=== PATIENT | male | born 1975 | race Caucasian/White ===

== ENCOUNTER 2017-04-30 05:21 | Emergency (ER) | payer MEDICAID ==
[~2017-04-30] VITALS: Ht 185.4 cm; Wt 90.7 kg
[2017-04-30 05:28] VITALS: Ht 185.4 cm; Wt 90.7 kg
[2017-04-30 06:32] LABS: UA SPECIFIC GRAVITY >=1.030 (1.005-1.035); microscopic required? YES; urine erythrocyte 2+ (NEGATIVE)
[2017-04-30 06:53] LABS: BASOPHIL % 0.8 % (0-2); PLATELET COUNT 246 x10^3mcL (130-400); RED CELL DISTRIBUTION WIDTH 12.6 % (11.5-14.5)
[2017-04-30 07:11] LABS: CALCIUM 8.4 mg/dL (8.5-10.1); CARBON DIOXIDE 28.6 mmol/L (21-32); CHLORIDE SERUM 105 mmol/L (98-107); CREATININE SERUM 0.8 mg/dL (0.7-1.3); GFR1 > 60 mL/min; GLUCOSE SERUM 85 mg/dL (74-106); POTASSIUM SERUM 4.1 mmol/L (3.5-5.1); SODIUM SERUM 142 mmol/L (136-145)
[2017-04-30 07:17] LABS: ALBUMIN 3.3 g/dL (3.4-5.0); ALKALINE PHOSPHATASE 44 U/L (46-116); ALT/SGPT 17 U/L (16-63); AST/SGOT 15 U/L (15-37); BILIRUBIN TOTAL 0.3 mg/dL (0.20-1.00); TOTAL PROTEIN, SERUM 6.8 g/dL (6.4-8.2)
[2017-04-30 08:19] VITALS: BP 126/83
== END 2017-04-30 08:28 | disposition home or self-care (01) ==
LOC: ED 05:21
PROVIDERS: Emergency Medicine; Specialist
DX: N49.2 Inflammatory disorders of scrotum (principal); N39.0 Urinary tract infection, site not specified
CPT/HCPCS: 36415; 83880; 87491; 87591; J0696; J1885; J2270; Q0092; Q0162

== ENCOUNTER 2017-05-10 04:21 | Emergency (ER) | payer MEDICAID ==
[~2017-05-10] VITALS: Ht 182.9 cm; Wt 92.1 kg
[2017-05-10 04:24] VITALS: Ht 182.9 cm; Wt 92.1 kg
[2017-05-10 04:51] VITALS: BP 126/89
== END 2017-05-10 04:51 | disposition home or self-care (01) ==
LOC: ED 04:21
DX: F31.9 Bipolar disorder, unspecified (principal); Z86.59 Personal history of other mental and behavioral disorders

== ENCOUNTER 2017-06-23 12:41 | Emergency (ER) | payer MEDICAID ==
[~2017-06-23] VITALS: Ht 185.4 cm; Wt 88.2 kg
[2017-06-23 12:50] VITALS: BP 125/62; Ht 185.4 cm; Wt 88.2 kg
== END 2017-06-23 13:23 | disposition home or self-care (01) ==
LOC: ED 12:41
DX: R44.0 Auditory hallucinations (principal); Z76.0 Encounter for issue of repeat prescription; F41.9 Anxiety disorder, unspecified; Z86.59 Personal history of other mental and behavioral disorders

== ENCOUNTER 2017-07-01 18:00 | Emergency (ER) | payer MEDICAID ==
[~2017-07-01] VITALS: Ht 185.4 cm; Wt 91.2 kg
[2017-07-01 18:03] VITALS: Ht 185.4 cm; Wt 91.2 kg
[2017-07-01 19:23] VITALS: BP 134/88
== END 2017-07-01 19:23 | disposition home or self-care (01) ==
LOC: ED 18:00
DX: F41.8 Other specified anxiety disorders (principal); Z76.0 Encounter for issue of repeat prescription; Z59.0 Homelessness

== ENCOUNTER 2017-07-07 11:20 | Emergency (ER) | payer MEDICAID ==
[~2017-07-07] VITALS: Ht 185.4 cm; Wt 91.6 kg
[2017-07-07 11:26] VITALS: Ht 185.4 cm; Wt 91.6 kg
[2017-07-07 13:30] VITALS: BP 132/79
== END 2017-07-07 13:30 | disposition home or self-care (01) ==
LOC: ED 11:20
DX: I88.9 Nonspecific lymphadenitis, unspecified (principal)

== ENCOUNTER 2017-08-15 20:12 | Emergency (ER) | payer MEDICAID ==
[~2017-08-15] VITALS: Ht 185.4 cm; Wt 91.6 kg
[2017-08-15 20:31] VITALS: Ht 185.4 cm; Wt 91.6 kg
[2017-08-15 21:15] LABS: BASOPHIL % 0.7 % (0-2); PLATELET COUNT 272 x10^3mcL (130-400); RED CELL DISTRIBUTION WIDTH 14.3 % (11.5-14.5)
[2017-08-15 21:21] LABS: CALCIUM 8.3 mg/dL (8.5-10.1); CARBON DIOXIDE 27.3 mmol/L (21-32); CHLORIDE SERUM 107 mmol/L (98-107); CREATININE SERUM 1.3 mg/dL (0.7-1.3); GFR1 > 60 mL/min; GLUCOSE SERUM 115 mg/dL (74-106); POTASSIUM SERUM 3.9 mmol/L (3.5-5.1); SODIUM SERUM 143 mmol/L (136-145)
[2017-08-15 21:28] LABS: ALBUMIN 3.5 g/dL (3.4-5.0); ALKALINE PHOSPHATASE 57 U/L (46-116); ALT/SGPT 25 U/L (16-63); AST/SGOT 20 U/L (15-37); BILIRUBIN TOTAL 0.2 mg/dL (0.20-1.00); TOTAL PROTEIN, SERUM 6.4 g/dL (6.4-8.2)
[2017-08-15 21:52] LABS: UA SPECIFIC GRAVITY 1.025 (1.005-1.035); microscopic required? YES; urine erythrocyte TRACE (NEGATIVE)
[2017-08-15 22:00] LABS: AMPHETAMINE QUAL UR NONE DETECTED
[2017-08-16 04:01] VITALS: BP 123/58
== END 2017-08-16 04:01 | disposition home or self-care (01) ==
LOC: ED 20:12
PROVIDERS: Emergency Medicine
DX: F32.9 Major depressive disorder, single episode, unspecified (principal); F41.9 Anxiety disorder, unspecified; F17.200 Nicotine dependence, unspecified, uncomplicated
CPT/HCPCS: 36415; G0480

== ENCOUNTER 2017-09-17 20:04 | Emergency (ER) | payer MEDICAID ==
[~2017-09-17] VITALS: Ht 185.4 cm; Wt 88.5 kg
[2017-09-17 20:13] VITALS: Ht 185.4 cm; Wt 88.5 kg
[2017-09-17 21:13] VITALS: BP 126/71
== END 2017-09-17 21:13 | disposition left against medical advice (07) ==
LOC: ED 20:04
DX: Z53.21 Procedure and treatment not carried out due to patient leaving prior to being seen by health care provider (principal)

== ENCOUNTER 2017-10-05 19:41 | Emergency (ER) | payer MEDICAID ==
[~2017-10-05] VITALS: Ht 185.4 cm; Wt 87.7 kg
[2017-10-05 19:50] VITALS: Ht 185.4 cm; Wt 87.7 kg
[2017-10-05 21:49] LABS: BASOPHIL % 0.4 % (0-2); PLATELET COUNT 246 x10^3mcL (130-400); RED CELL DISTRIBUTION WIDTH 14.4 % (11.5-14.5)
[2017-10-05 21:50] LABS: microscopic required? NO
[2017-10-05 21:55] LABS: CARBON DIOXIDE 29.1 mmol/L (21-32); CHLORIDE SERUM 105 mmol/L (98-107); CREATININE SERUM 0.9 mg/dL (0.7-1.3); GFR1 > 60 mL/min; GLUCOSE SERUM 118 mg/dL (74-106); POTASSIUM SERUM 3.8 mmol/L (3.5-5.1); SODIUM SERUM 140 mmol/L (136-145)
[2017-10-05 22:00] LABS: ALBUMIN 3.4 g/dL (3.4-5.0); ALKALINE PHOSPHATASE 59 U/L (46-116); ALT/SGPT 22 U/L (16-63); AST/SGOT 20 U/L (15-37); BILIRUBIN TOTAL 0.3 mg/dL (0.20-1.00); TOTAL PROTEIN, SERUM 6.3 g/dL (6.4-8.2)
[2017-10-05 22:12] LABS: urine erythrocyte NEGATIVE (NEGATIVE)
[2017-10-05 22:20] LABS: AMPHETAMINE QUAL UR NONE DETECTED (See below)
[2017-10-06 01:35] VITALS: BP 134/75
== END 2017-10-06 01:35 | disposition home or self-care (01) ==
LOC: ED 19:41
PROVIDERS: Emergency Medicine
DX: F31.9 Bipolar disorder, unspecified (principal); F17.210 Nicotine dependence, cigarettes, uncomplicated; Z88.0 Allergy status to penicillin
CPT/HCPCS: 36415; G0480

== ENCOUNTER 2017-12-10 18:28 | Emergency (ER) | payer OTHER ==
[~2017-12-10] VITALS: Ht 185.4 cm; Wt 90.7 kg
[2017-12-10 18:34] VITALS: Ht 185.4 cm; Wt 90.7 kg
[2017-12-10 18:55] VITALS: BP 119/85
== END 2017-12-10 18:55 | disposition other institution (70) ==
LOC: ED 18:28
DX: R00.0 Tachycardia, unspecified (principal); F23 Brief psychotic disorder; F32.9 Major depressive disorder, single episode, unspecified; F41.9 Anxiety disorder, unspecified

== ENCOUNTER 2018-05-06 09:35 | Emergency (ER) | payer OTHER ==
[~2018-05-06] VITALS: Ht 185.4 cm; Wt 90.3 kg
[2018-05-06 09:53] VITALS: BP 120/57; Ht 185.4 cm; Wt 90.3 kg
== END 2018-05-06 10:28 | disposition home or self-care (01) ==
LOC: ED 09:35
DX: Z76.0 Encounter for issue of repeat prescription (principal); F41.9 Anxiety disorder, unspecified; F32.9 Major depressive disorder, single episode, unspecified; Z88.0 Allergy status to penicillin

== ENCOUNTER 2018-08-09 11:15 | Emergency (ER) | payer OTHER ==
[~2018-08-09] VITALS: Ht 185.4 cm; Wt 94.8 kg
[2018-08-09 11:19] VITALS: BP 132/81
== END 2018-08-09 15:00 | disposition left against medical advice (07) ==
LOC: ED 11:15
DX: Z53.21 Procedure and treatment not carried out due to patient leaving prior to being seen by health care provider (principal)

== ENCOUNTER 2018-08-30 20:10 | Emergency (ER) | payer OTHER ==
[~2018-08-30] VITALS: Ht 185.4 cm; Wt 92.5 kg
[2018-08-30 20:24] VITALS: Ht 185.4 cm; Wt 92.5 kg
[2018-08-30 21:00] LABS: BASOPHIL % 0.3 % (0-2); PLATELET COUNT 267 x10^3mcL (130-400); RED CELL DISTRIBUTION WIDTH 13.7 % (11.5-14.5)
[2018-08-30 22:41] VITALS: BP 123/69
== END 2018-08-30 22:41 | disposition home or self-care (01) ==
LOC: ED 20:10
PROVIDERS: Emergency Medicine
DX: K64.9 Unspecified hemorrhoids (principal); F32.9 Major depressive disorder, single episode, unspecified; F41.9 Anxiety disorder, unspecified; Z88.0 Allergy status to penicillin
CPT/HCPCS: 36415

== ENCOUNTER 2018-10-08 10:07 | Emergency (ER) | payer OTHER ==
[~2018-10-08] VITALS: Ht 182.9 cm; Wt 92.5 kg
[2018-10-08 10:13] VITALS: Ht 182.9 cm; Wt 92.5 kg
[2018-10-08 10:48] LABS: BASOPHIL % 0.8 % (0-2); PLATELET COUNT 236 x10^3mcL (130-400)
[2018-10-08 11:01] LABS: CALCIUM 8.5 mg/dL (8.5-10.1); CARBON DIOXIDE 29.1 mmol/L (21-32); CHLORIDE SERUM 105 mmol/L (98-107); CREATININE SERUM 0.8 mg/dL (0.7-1.3); GFR1 > 60 mL/min; GLUCOSE SERUM 128 mg/dL (74-106); POTASSIUM SERUM 3.9 mmol/L (3.5-5.1); SODIUM SERUM 141 mmol/L (136-145)
[2018-10-08 11:16] LABS: AMYLASE 192 U/L (25-115); C REACTIVE PROTEIN < 0.2 mg/dL (<=0.9)
[2018-10-08 13:47] VITALS: BP 118/76
== END 2018-10-08 13:45 | disposition home or self-care (01) ==
LOC: ED 10:07
PROVIDERS: Emergency Medicine
DX: K12.2 Cellulitis and abscess of mouth (principal); I88.9 Nonspecific lymphadenitis, unspecified; F32.9 Major depressive disorder, single episode, unspecified; F12.10 Cannabis abuse, uncomplicated; F41.9 Anxiety disorder, unspecified
CPT/HCPCS: 86308; J1100; J7030; Q9967

== ENCOUNTER 2018-11-21 11:50 | Emergency (ER) | payer OTHER ==
[~2018-11-21] VITALS: Ht 185.4 cm; Wt 94.8 kg
[2018-11-21 12:15] VITALS: Ht 185.4 cm; Wt 94.8 kg
[2018-11-21 12:48] VITALS: BP 118/71
== END 2018-11-21 13:25 | disposition home or self-care (01) ==
LOC: ED 11:50
DX: H60.93 Unspecified otitis externa, bilateral (principal); F31.9 Bipolar disorder, unspecified

== ENCOUNTER 2018-12-08 11:58 | Emergency (ER) | payer OTHER ==
[~2018-12-08] VITALS: Ht 185.4 cm; Wt 94.8 kg
[2018-12-08 12:54] VITALS: Ht 185.4 cm; Wt 94.8 kg
[2018-12-08 14:51] VITALS: BP 128/90
== END 2018-12-08 14:51 | disposition home or self-care (01) ==
LOC: ED 11:58
DX: Z76.0 Encounter for issue of repeat prescription (principal); F31.9 Bipolar disorder, unspecified; F41.9 Anxiety disorder, unspecified

== ENCOUNTER 2019-03-06 01:55 | Emergency (ER) | payer OTHER ==
[~2019-03-06] VITALS: Ht 182.9 cm; Wt 97.7 kg
[2019-03-06 02:16] VITALS: BP 133/77; Ht 182.9 cm; Wt 97.7 kg
== END 2019-03-06 06:52 | disposition home or self-care (01) ==
LOC: ED 01:55
DX: L02.416 Cutaneous abscess of left lower limb (principal)

== ENCOUNTER 2020-03-27 07:54 | Emergency (ER) | payer MEDICAID ==
[~2020-03-27] VITALS: Ht 182.9 cm; Wt 91.6 kg
[2020-03-27 07:57] VITALS: BP 128/89; Ht 182.9 cm; Wt 91.6 kg
== END 2020-03-27 08:40 | disposition home or self-care (01) ==
LOC: ED 07:54
DX: S61.212A Laceration without foreign body of right middle finger without damage to nail, initial encounter (principal); X58.XXXA Exposure to other specified factors, initial encounter; Y93.89 Activity, other specified; Y92.89 Other specified places as the place of occurrence of the external cause; Y99.8 Other external cause status